=== PATIENT | female | born 1955 | race Asian ===

== ENCOUNTER → 2025-07-09 | Outpatient (CLI) | payer MEDICARE, MEDICAID, SELFPAY ==
[2025-07-09 09:04] LABS: Free T4 (Free Thyroxine) 1.48 ng/dL (0.89-1.76); T4 (Thyroxine) 7.6 mcg/dL (4.5-10.9); Thyroid Stimulating Hormone 7.13 uIU/mL (0.55-4.78)
== END | disposition home or self-care (01) ==
LOC: COPL 08:07
PROVIDERS: PCP Physician Assistant; Referring Provider Physician Assistant; Visit Provider Physician Assistant
DX: R94.6 Abnormal results of thyroid function studies (principal)
CPT/HCPCS: 36415; 84436; 84439; 84443